=== PATIENT | male | born 1965 | race Caucasian/White ===

== ENCOUNTER → 2024-09-11 09:45 | Outpatient (REF) | payer OTHER, SELFPAY | LOC: HWRAD 09:45 | PROVIDERS: ATTENDING PHYSICIAN Physician Assistant | DX: M54.2 Cervicalgia (principal) | CPT/HCPCS: 72052 ==

== ENCOUNTER → 2024-09-26 15:00 | Outpatient (REF) | payer OTHER, SELFPAY | LOC: MRI 3T 15:00 | PROVIDERS: ATTENDING PHYSICIAN Physician Assistant; FAMILY PHYSICIAN Nurse Practitioner Family | DX: M54.12 Radiculopathy, cervical region (principal) | CPT/HCPCS: 72141 ==

== ENCOUNTER → 2024-09-28 09:06 | Outpatient (REF) | payer OTHER, SELFPAY | LOC: MRI 3T 09:06 | PROVIDERS: ATTENDING PHYSICIAN Physician Assistant | DX: R51.9 Headache, unspecified (principal) | CPT/HCPCS: 70551 ==

== ENCOUNTER → 2024-10-29 08:01 | Outpatient (REF) | payer OTHER, SELFPAY | LOC: MRI 3T 08:01 | PROVIDERS: ATTENDING PHYSICIAN Physician Assistant; FAMILY PHYSICIAN Physician Assistant | DX: M54.12 Radiculopathy, cervical region (principal); G43.809 Other migraine, not intractable, without status migrainosus | CPT/HCPCS: 72156 ==

== ENCOUNTER → 2024-10-30 07:48 | Outpatient (REF) | payer OTHER, SELFPAY | LOC: PAVMRI 07:48 | PROVIDERS: ATTENDING PHYSICIAN Nurse Practitioner Family | DX: R51.9 Headache, unspecified (principal) | CPT/HCPCS: 70553; A9575 ==

== ENCOUNTER → 2024-12-05 09:04 | Outpatient (REF) | payer OTHER, SELFPAY | LOC: MRI 3T 09:04 | PROVIDERS: ATTENDING PHYSICIAN Psychiatry & Neurology Neurology; FAMILY PHYSICIAN Nurse Practitioner Family | DX: G96.09 Other spinal cerebrospinal fluid leak (principal) | CPT/HCPCS: 72157; A9575 ==

== ENCOUNTER → 2024-12-08 11:09 | Outpatient (REF) | payer OTHER, SELFPAY | LOC: MRI 3T 11:09 | PROVIDERS: ATTENDING PHYSICIAN Psychiatry & Neurology Neurology; FAMILY PHYSICIAN Nurse Practitioner Family | DX: G96.09 Other spinal cerebrospinal fluid leak (principal) | CPT/HCPCS: 72158; A9575 ==